=== PATIENT | female | born 1985 | race Caucasian/White ===

== ENCOUNTER 2017-07-18 10:35 | Emergency (ER) | payer SELFPAY ==
--- NOTE | ~2017-07-18 | ER ---
[facility] AGE: 32 Y [address] ROOM: [place] [id number] LOCATION: [facility] ADMIT DATE: 07/18/2017 ER/Outpatient Report DISCHARGE DATE: 07/18/2017 FAMILY PHYSICIAN: PHYSICIAN, NO ATTENDING PHYSICIAN: Oscar Chambers Time of Arrival: 1035 hours. Time of Evaluation: 1050 hours. IDENTIFICATION: A 32-year-old female. CHIEF COMPLAINT: Upper abdominal pain. HISTORY OF PRESENT ILLNESS: The patient has sharp, crampy, constant abdominal pain in the epigastric region for 24 hours. Some nausea, no vomiting. She had 1 episode of diarrhea this morning. No blood in her stools. No dark, tarry, or black stools. No ill contacts. No fever or chills. 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 ALLERGIES: NO KNOWN DRUG ALLERGIES. CURRENT MEDICATIONS: No current medications. PAST MEDICAL HISTORY: No medical problems. PAST SURGICAL HISTORY: section x3 and tubal ligation. SOCIAL HISTORY: The patient lives here in [place]. She works at [employer]. Tobacco use, 1/2 pack per day. Alcohol use, denies. Drug use, denies. REVIEW OF SYSTEMS: All systems reviewed and negative other than what is noted in the HPI. Last menstrual period was 2 weeks ago. FAMILY HISTORY: No pertinent family history. PHYSICAL EXAMINATION: [facility] AGE: 32 Y [address] ROOM: [place] [address] LOCATION: [facility] ADMIT DATE: 07/18/2017 ER/Outpatient Report DISCHARGE DATE: 07/18/2017 FAMILY PHYSICIAN: PHYSICIAN, NO ATTENDING PHYSICIAN: Oscar Chambers VITAL SIGNS: Height 5 feet 6 inches, weight 103.7 kg, blood pressure 137/84, pulse 81, respirations 18, temperature 97, saturations 98%. GENERAL: A 32-year-old female, in no acute distress. HEENT: Unremarkable. LUNGS: Clear to auscultation. HEART: Regular rate and rhythm. ABDOMEN: Protuberant. Bowel sounds present. Soft, nondistended, tender to palpation in the epigastric region. No rebound or guarding. SKIN: [place], warm, and dry. No lesions or rashes noted. NEURO: No focal deficit. No lower extremity edema. GI: Cocktail was given and her pain improved. DIAGNOSTIC DATA: UA is negative. The patient was given Zofran 4 mg sublingual as well. CBC is normal. Sodium 142, potassium 3.9, chloride 110, CO2 of 27, BUN 8, creatinine 1.0, blood sugar 77. Liver enzymes normal. Amylase 26, lipase 176, hemoglobin 12.9, and white count was 5.9. IMPRESSION: Gastritis. PLAN: Prilosec 20 mg daily. Clear liquids as tolerated. Advance diet as tolerated. Follow up with a primary care physician, [facility] on [facility] in 5 to 7 days. Follow up sooner if any problems or concerns and smoking cessation was recommended. The patient understands and agrees, and all questions have been answered. OSCAR CHAMBERS MD CAR/modl /[id number] d: 07/18/17 2326 t: 07/21/17 0705, OUTPATIENT REPORT
[2017-07-18 11:13] LABS: BASOPHIL % 0.3 %; EOSINOPHIL # 0.2 K/uL (0.0-0.5); EOSINOPHIL % 3.4 %; HEMATOCRIT 40.1 % (33.0-46.0); HEMOGLOBIN 12.9 g/dL (11.0-15.0); IMMATURE GRANULOCYTE % 0.5 %; MCH 28.1 pg (27.0-34.0); MCHC 32.2 gm/dL (32.0-36.5); MCV 87.4 fl (83.0-98.0); MONOCYTE # 0.4 K/uL (0.0-1.0); MONOCYTE % 5.9 %; NEUTROPHIL # (ANC) 3.3 K/uL (1.8-7.8); NEUTROPHIL % 55.9 %; NRBC % 0 /100WBC (0-0.00); PLATELET COUNT 180 K/uL (150-450); RBC 4.59 M/uL (3.50-5.50); RDW-CV 13.4 % (11.9-14.6); WBC 5.9 K/uL (4.0-11.0)
[2017-07-18 11:30] LABS: ALBUMIN 3.2 gm/dL (3.5-5.0); ANION GAP 8.9 (10.0-19.0); CALCIUM 8.1 mg/dL (8.5-10.5); POTASSIUM 3.9 mMol/L (3.7-5.1); TOTAL BILIRUBIN 0.4 mg/dL (0.0-1.5); TOTAL PROTEIN 6.4 g/dL (6.0-8.4)
[2017-07-18 12:02] LABS: BILIRUBIN URINE NEGATIVE (NEGATIVE); BLOOD URINE NEGATIVE /UL (NEGATIVE); COLOR URINE COLORLESS (YELLOW); GLUCOSE URINE NEGATIVE (NEGATIVE); KETONE URINE NEGATIVE (NEGATIVE); LEUKOCYTES URINE NEGATIVE /UL (NEGATIVE); NITRITE URINE NEGATIVE (NEGATIVE); PROTEIN URINE NEGATIVE (NEGATIVE); SPEC GRAVITY URINE 1.005 (1.003-1.035); TURBIDITY URINE CLEAR (CLEAR); UROBILINOGEN URINE NORMAL (NORMAL)
== END 2017-07-18 13:25 | disposition disaster alternative care site (69) ==
LOC: GMED 10:35
PROVIDERS: Family Medicine
DX: K29.70 Gastritis, unspecified, without bleeding (principal); F17.210 Nicotine dependence, cigarettes, uncomplicated; Z98.51 Tubal ligation status; Z98.890 Other specified postprocedural states